=== PATIENT | female | born 1965 | race Caucasian/White ===

== ENCOUNTER 2017-01-14 17:03 | Inpatient (IN) | payer MEDICAID ==
[2017-01-14] MEDS ORDERED: Sodium Chloride 0.9% 10 ML Syringe FLUSH PRN (17:19)
--- NOTE | 2017-01-14 18:17 | PCM.HP ---
H&P History of Present Illness - General Date of Service: 01/14/17 Admit Problem/Dx: Admission Diagnosis/Problem Admission Diagnosis/Problem UTI, Urinary tract infectious disease Source of Information: Patient History Limitations: Reports: No Limitations - History of Present Illness Initial Comments - Free Text/Narative: Kimberly started to have diarrhea 10 days ago. One week ago started on Cipro 500 bid and she has had no improvement in increased urinary frequency and burning when passing urine. The urine culture was reported as no infection. She is having 12 stools daily and feels dehydrated. Stools are light brown and yellow in color. She has pain in the kidney area from the CVA areas. Onset of Symptoms: Reports: Gradual Location: Reports: Abdomen Quality: Reports: Burning Severity: Moderate Improves with: Reports: None Worsens with: Reports: None Associated Symptoms: Reports: Loss of Appetite, Weakness - Related Data Allergies/Adverse Reactions: Allergies Allergy/AdvReac Type Severity Reaction Status Date / Time Sulfa (Sulfonamide Allergy Severe Airway Verified 06/27/15 07:38 Antibiotics) Tightness ciprofloxacin [From Cipro] Allergy Hives Verified 06/27/15 07:38 ciprofloxacin HCl Allergy Hives Verified 06/27/15 07:38 [From Cipro] erythromycin base Allergy Hives Verified 06/27/15 07:38 ibuprofen Allergy Cannot Verified 06/27/15 07:38 Remember levofloxacin [From Levaquin] Allergy Hives Verified 06/27/15 07:38 Penicillins Allergy Hives Verified 06/27/15 07:38 acetaminophen [From Tylenol] AdvReac Nausea Verified 06/27/15 07:38 Home Medications: Home Meds Spironolactone [Aldactone] 25 mg PO DAILY 10/26/13 [History] rOPINIRole [Requip] 0.25 mg PO BEDTIME PRN MDD 0.75 10/26/13 [History] FLUoxetine [PROzac] 20 mg PO DAILY 04/24/14 [History] Atenolol 100 mg PO DAILY 05/22/14 [History] traZODone 100 mg PO BEDTIME 07/24/14 [History] Simethicone [Anti-Gas] 80 mg PO BID PRN 11/08/15 [History] Ondansetron [Zofran ODT] 4 mg PO Q4H PRN #30 tab.dis 11/17/15 [Rx] DULoxetine [Cymbalta] 30 mg PO DAILY 08/10/16 [History] Doxazosin Mesylate [Cardura] 2 mg PO BEDTIME 08/10/16 [History] Furosemide [Lasix] 40 mg PO DAILY 08/10/16 [History] Hydrocodone/Acetaminophen [Hydrocodon-Acetaminophn 10-325] 1 tab PO Q6H PRN [History] Omeprazole 40 mg PO DAILY 08/10/16 [History] Prochlorperazine [Compazine] 10 mg PO Q8H PRN 08/10/16 [History] Rosuvastatin Calcium 10 mg PO BEDTIME 08/10/16 [History] cycloSPORINE [Restasis] 1 drop EYEBOTH BID 08/10/16 [History] tiZANidine [Zanaflex] 4 mg PO DAILY PRN 08/10/16 [History] Losartan [Cozaar] 50 mg PO DAILY 01/14/17 [History] metFORMIN HCl [Metformin HCl] 1,000 mg PO QAM 01/14/17 [History] metFORMIN HCl [Metformin HCl] 250 mg PO ACDINNER 01/14/17 [History] Past Medical History HEENT History: Reports: Hard of Hearing Cardiovascular History: Reports: High Cholesterol, Hypertension Other Gastrointestinal History: Colon cancer [employer] History: Reports: Endometriosis, Fibroids Musculoskeletal History: Reports: Arthritis, Fibromyalgia, Neck Pain, Chronic Neurological History: Reports: Migraines Endocrine/Metabolic History: Reports: Obesity/BMI 30+ Oncologic (Cancer) History: Reports: Colon, Ovarian Other Oncologic History: Cancer of appendix; skin cancer - Infectious Disease History Infectious Disease History: Reports: Chicken Pox, Measles, Shingles - Past Surgical History HEENT Surgical History: Reports: LASIK, Oral Surgery GI Surgical History: Reports: Appendectomy, Cholecystectomy, Colonoscopy, Hernia , Abdominal Musculoskeletal Surgical History: Reports: Ganglion Cyst Social & Family History - Tobacco Use Smoking Status *Q: Light Tobacco Smoker Years of Tobacco use: 40 Packs/Tins Daily: 0.5 Used Tobacco, but Quit: No Month Tobacco Last Used: April Second Hand Smoke Exposure: Yes - Caffeine Use Caffeine Use: Reports: Coffee Caffeine Use Comment: 3 cups of coffee - Alcohol Use Days Per Week of Alcohol Use: 0 - Recreational Drug Use Recreational Drug Use: No H&P Review of Systems - Review of Systems: Review Of Systems: See Below General: Reports: Weakness Pulmonary: Reports: No Symptoms Cardiovascular: Reports: No Symptoms Gastrointestinal: Reports: Diarrhea, Decreased Appetite, Nausea Genitourinary: Reports: Dysuria, Frequency, Burning, Urgency Musculoskeletal: Reports: No Symptoms Skin: Reports: No Symptoms Psychiatric: Reports: No Symptoms Neurological: Reports: Weakness Hematologic/Lymphatic: Reports: No Symptoms Immunologic: Reports: No Symptoms Exam - Exam Exam: See Below - Vital Signs Vital Signs: Last Vital Signs Temp 98.6 F 01/14/17 17:20 Pulse 73 01/14/17 17:20 Resp 18 01/14/17 17:20 BP 125/75 01/14/17 17:20 Pulse Ox 95 01/14/17 17:20 Weight: 181 lb - Exam General: Alert, Oriented, 4 HEENT: PERRLA, Hearing Intact, Mucosa Moist & [place], Nares Patent, Normal Nasal Septum, Posterior Pharynx Clear, Conjunctiva Clear, EOMI, EACs Clear, TMs Clear Neck: Supple, Trachea Midline, 2 Lungs: Clear to Auscultation, Normal Respiratory Effort Cardiovascular: Regular Rate, Regular Rhythm Abdomen: Guarding Extremities: 3, Normal Inspection, 10 Peripheral Pulses: 1+: Radial (L), Radial (R) Skin: Warm, Dry, Intact Neurological: Cranial Nerves Intact, Reflexes Equal Bilateral Neuro Extensive - Mental Status: Alert, Oriented x3, Normal Mood/Affect, Normal Cognition Neuro Extensive - Motor, Sensory, Reflexes: CN II-XII Intact, Normal Gait, Normal Reflexes Psychiatric: Alert, Normal Affect, Normal Mood - Patient Data Lab Results last 24 hrs: Laboratory Results - last 24 hr 01/14/17 01/14/17 Range/Units 17:17 17:17 WBC 10.6 (4.5-11.0) K/uL RBC 5.03 (3.30-5.50) M/uL Hgb 15.0 (12.0-15.0) g/dL Hct 42.9 (36.0-48.0) % MCV 85 (80-98) fL MCH 30 (27-31) pg MCHC 35 (32-36) % Plt Count 301 (150-400) K/uL Neut % (Auto) 68 H (36-66) % Lymph % (Auto) 23 L (24-44) % [place] % (Auto) 8 H (2-6) % Eos % (Auto) 1 L (2-4) % Baso % (Auto) 1 (0-1) % Sodium 140 (140-148) mmol/L Potassium 3.6 (3.6-5.2) mmol/L Chloride 104 (100-108) mmol/L Carbon Dioxide 25 (21-32) mmol/L Anion Gap 10.8 (5.0-14.0) mmol/L BUN 9 (7-18) mg/dL Creatinine 0.9 (0.6-1.0) mg/dL Est Cr Clr Drug Dosing 63.74 mL/min Estimated GFR (MDRD) > 60 (>60) Glucose 128 H (74-106) mg/dL Calcium 8.7 (8.5-10.1) mg/dL Total Bilirubin 0.5 (0.2-1.0) mg/dL AST 32 (15-37) U/L ALT 44 (12-78) U/L Alkaline Phosphatase 136 H (46-116) U/L Total Protein 7.4 (6.4-8.2) g/dL Albumin 3.8 (3.4-5.0) g/dL Globulin 3.6 H (2.3-3.5) g/dL Albumin/Globulin Ratio 1.1 L (1.2-2.2) Result Diagrams: 01/14/17 17:17 01/14/17 17:17 *Q Meaningful Use (ADM) - VTE *Q VTE Criteria *Q: - Stroke *Q Stroke Criteria *Q: - AMI *Q AMI Criteria *Q: Problem List Initiated/Reviewed/Updated: Yes Orders Last 24hrs: Active Orders 24 hr Category Date Time Status Activity as Tolerated [RC] .Routine Care 01/14/17 17:12 Active Peripheral IV Care [RC] . DIRECTED Care 01/14/17 17:19 Active Vital Signs [RC] Q8H Care 01/14/17 17:12 Active Regular Diet [DIET] Diet 01/14/17 Breakfast Active CLOSTRIDIUM DIFFICILE BY PCR [RM] Routine Lab 01/14/17 17:12 Uncollected CULTURE STOOL + SHIGATOX [RM] Routine Lab 01/14/17 17:17 Uncollected CULTURE URINE [RM] Routine Lab 01/14/17 17:18 Uncollected OVA AND PARASITES [MREF] Routine Lab 01/14/17 17:16 Uncollected UA W/MICROSCOPIC [URIN] Routine Lab 01/14/17 17:18 Uncollected WBC, STOOL [OP] Routine Lab 01/14/17 17:17 Uncollected Dextrose 5%-0.9% NaCl [Dextrose 5%-Normal Saline] 1,000 Med 01/14/17 17:30 Active ml IV ASDIRECTED Sodium Chloride 0.9% [Saline Flush] Med 01/14/17 17:19 Active 10 ml FLUSH ASDIRECTED PRN Peripheral IV Insertion Adult [OM.PC] Routine Oth 01/14/17 17:19 Ordered Medication Orders Dextrose/Sodium Chloride (Dextrose 5%-Normal Saline) 1,000 mls @ 125 mls/hr IV ASDIRECTED CORY Sodium Chloride (Saline Flush) 10 ml FLUSH ASDIRECTED PRN PRN Reason: Keep Vein Open Assessment/Plan Comment:: Assessment/Plan: #1. Diarrhea. Evaluation pending. The diarrhea started before the antibiotics. #2. UTI. She has a slight reaction to cipro as before but it was the only oral med. She had nausea which was mild before. #3. DMII. Will check blood sugars. #4. 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 #6. Fibromyalgia: #7. HLD: On crestor #8. Multiple allergies to medicine.
[2017-01-14] MEDS ORDERED: Sodium Chloride 0.9% 80 ML IV SCH (18:45)
[2017-01-14] MEDS ORDERED: Iopamidol 612 MG/ML 150 ML Bottle IV SCH (18:45)
[2017-01-14] MEDS: Dextrose 5%-0.9% NaCl 1,000 ML IV SCH (19:44)
[2017-01-14] MEDS ORDERED: Ondansetron 4 MG Tab.DIS PO PRN (20:38)
[2017-01-14] MEDS ORDERED: rOPINIRole 0.5 MG Tab PO PRN (21:00)
[2017-01-14] MEDS ORDERED: traZODone 50 MG Tab PO SCH (21:00)
[2017-01-14] MEDS ORDERED: Doxazosin 4 MG Tab PO SCH (21:00)
[2017-01-14] MEDS ORDERED: Simethicone 80 MG Tab.Chew PO PRN (21:00)
[2017-01-14] MEDS ORDERED: cycloSPORINE Ophth Drops U/D Box of 30 EYEBOTH SCH (21:00)
[2017-01-14] MEDS: Acetaminophen/HYDROcodone 325-10 MG Tab PO PRN (21:15)
[2017-01-14] MEDS: Insulin Aspart 100 Units/ML 3 ML Pen SUBCUT SCH (22:08)
[2017-01-14] MEDS: Nicotine 14 MG/24 Hr Patch TRDERM SCH (22:14)
[2017-01-15] MEDS: Dextrose 5%-0.9% NaCl 1,000 ML IV SCH (03:42)
[2017-01-15] MEDS ORDERED: Iohexol 300 MG/ML 30 ML Bottle PO ONE (06:10)
[2017-01-15] MEDS ORDERED: Iohexol 647 MG/ML 10 ML SDV ONE (06:15)
[2017-01-15] MEDS: Insulin Aspart 100 Units/ML 3 ML Pen SUBCUT SCH ×3 (06:26→11:36)
[2017-01-15] MEDS ORDERED: Iohexol 647 MG/ML 10 ML SDV PO SCH (06:30)
[2017-01-15] MEDS ORDERED: Iopamidol 612 MG/ML 150 ML Bottle IV PRN (07:14)
[2017-01-15] MEDS ORDERED: Pantoprazole 40 MG Tab.CR PO SCH (07:30)
[2017-01-15] MEDS ORDERED: Losartan 50 MG Tab PO SCH (09:00)
[2017-01-15] MEDS ORDERED: cycloSPORINE Ophth Drops U/D Box of 30 EYEBOTH SCH (09:00)
[2017-01-15] MEDS ORDERED: Atenolol 50 MG Tab PO SCH (09:00)
[2017-01-15] MEDS ORDERED: FLUoxetine 20 MG Cap PO SCH (09:00)
--- NOTE | 2017-01-15 09:08 | CR ---
Chest 2V HISTORY: No Clinical Info FINDINGS: Heart size within normal limits. Pulmonary vasculature within normal limits. Faint hazines s right lower lobe. A developing infiltrate is difficult to exclude although not evident on the late ral view. Recommend radiographic follow-up.
[2017-01-15] MEDS: Acetaminophen/HYDROcodone 325-10 MG Tab PO PRN (09:22)
[2017-01-15 11:20] VITALS: BP 120/68
--- NOTE | 2017-01-15 11:20 | CT ---
CT abdomen and pelvis Total DLP 723. Comparison: 08/11/2016 Findings: Atelectasis within the lung bases. Fatty infiltration of the liver. Cysts within the liver . Prior cholecystectomy change. Adrenal glands within normal limits. Pancreas within normal limits. Prior cholecystectomy change. Granulomas within the spleen. Pancreas within normal limits. Hysterect aline change. Sigmoid diverticuli without evidence for diverticulitis. Right hemicolectomy. No small b owel wall thickening. Bladder unremarkable. Prior anterior hernia repair. Impression: 1. No acute intra-abdominal or pelvic process by CT.
[2017-01-15] MEDS: Nicotine 14 MG/24 Hr Patch TRDERM SCH (13:00)
--- NOTE | 2017-01-15 15:05 | PCM.DCSUM1 ---
Discharge Summary - Hospital Course Brief History: This patient is a 51-year-old woman who was admitted through the emergency department for further evaluation and management fatigue associated with ongoing diarrhea. - Discharge Data Discharge Date: 01/15/17 Discharge Disposition: Home, Self-Care 01 Condition: Good - Discharge Diagnosis/Problem(s) (1) Type 2 diabetes mellitus SNOMED Code(s): 62158191 ICD Code: E11.9 - TYPE 2 DIABETES MELLITUS WITHOUT COMPLICATIONS Status: Acute Current Visit: Yes (2) Chronic diarrhea SNOMED Code(s): 736249593 ICD Code: K52.9 - NONINFECTIVE GASTROENTERITIS AND COLITIS, UNSPECIFIED Status: Acute Current Visit: Yes - Patient Summary/Data Hospital Course: This patient is a 51-year-old woman who has had ongoing difficulty with intermittent diarrhea over the past years. Recently she was treated for urinary tract infection with ciprofloxacin, actually prior to onset of antibiotic therapy she began having more difficulty with diarrhea up to 12 stools per day. During this period of time she became progressively more weak and fatigued. She was admitted yesterday by Dr. Gan for further evaluation and management. After admission she had only one semi-formed stool, studies were negative for C. difficile and white blood cells. CT scan of the abdomen was obtained and showed no significant abnormalities to explain her current symptoms. White blood cell count was normal and urine showed no evidence of active urinary tract infection urine. Blood glucose levels were monitored throughout hospital stay for ongoing management of her diabetes. She was tolerating a diet on the day of discharge and no specific etiology for her underlying symptoms, at the time of discharge it appeared that her diarrhea had resolved. She will resume her usual diabetic diet and activity will be as tolerated. Followup appointment will be scheduled with Dr. Gan within one week. Consider referral to gastroenterology for further evaluation of her intermittent chronic diarrhea and possible colonoscopy for further evaluation. - Patient Instructions Diet: Diabetic Diet Activity: As Tolerated Other/Special Instructions: Schedule followup appointment with Dr. Gan within one week. - Discharge Plan Home Medications: Home Meds Spironolactone [Aldactone] 25 mg PO DAILY 10/26/13 [History] rOPINIRole [Requip] 0.25 mg PO BEDTIME PRN MDD 0.75 10/26/13 [History] FLUoxetine [PROzac] 20 mg PO DAILY 09/02/14 [History] Atenolol 100 mg PO DAILY 05/22/14 [History] traZODone 100 mg PO BEDTIME 07/24/14 [History] Simethicone [Anti-Gas] 80 mg PO BID PRN 11/08/15 [History] Ondansetron [Zofran ODT] 4 mg PO Q4H PRN #30 tab.dis 11/17/15 [Rx] DULoxetine [Cymbalta] 30 mg PO DAILY 08/10/16 [History] Doxazosin Mesylate [Cardura] 2 mg PO BEDTIME 08/10/16 [History] Furosemide [Lasix] 40 mg PO DAILY 08/10/16 [History] Hydrocodone/Acetaminophen [Hydrocodon-Acetaminophn 10-325] 1 tab PO Q6H PRN [History] Omeprazole 40 mg PO DAILY 08/10/16 [History] Prochlorperazine [Compazine] 10 mg PO Q8H PRN 08/10/16 [History] Rosuvastatin Calcium 10 mg PO BEDTIME 08/10/16 [History] cycloSPORINE [Restasis] 1 drop EYEBOTH BID 08/10/16 [History] tiZANidine [Zanaflex] 4 mg PO DAILY PRN 08/10/16 [History] Diphenoxylate HCl/Atropine [Diphenoxylate-Atrop 2.5-0.025] 1 tab PO 6XDAY PRN [History] Losartan [Cozaar] 50 mg PO DAILY 01/14/17 [History] metFORMIN HCl [Metformin HCl] 1,000 mg PO QAM 01/14/17 [History] metFORMIN HCl [Metformin HCl] 250 mg PO ACDINNER 01/14/17 [History] - Patient Data Vitals - Most Recent: Last Vital Signs Temp 97 F 01/15/17 11:19 Pulse 69 01/15/17 11:19 Resp 16 01/15/17 11:19 BP 120/68 01/15/17 11:19 Pulse Ox 96 01/15/17 11:19 Weight - Most Recent: 180 lb 15.992 oz I&O - Last 24 hours: Intake & Output 01/15/17 01/15/17 01/15/17 06:59 14:59 22:59 Intake Total 1220 1520 Balance 1220 1520 Lab Results - Last 24 hrs: Laboratory Results - last 24 hr 01/14/17 01/14/17 01/14/17 Range/Units 17:17 17:17 18:28 WBC 10.6 (4.5-11.0) K/uL RBC 5.03 (3.30-5.50) M/uL Hgb 15.0 (12.0-15.0) g/dL Hct 42.9 (36.0-48.0) % MCV 85 (80-98) fL MCH 30 (27-31) pg MCHC 35 (32-36) % Plt Count 301 (150-400) K/uL Neut % (Auto) 68 H (36-66) % Lymph % (Auto) 23 L (24-44) % [place] % (Auto) 8 H (2-6) % Eos % (Auto) 1 L (2-4) % Baso % (Auto) 1 (0-1) % Sodium 140 (140-148) mmol/L Potassium 3.6 (3.6-5.2) mmol/L Chloride 104 (100-108) mmol/L Carbon Dioxide 25 (21-32) mmol/L Anion Gap 10.8 (5.0-14.0) mmol/L BUN 9 (7-18) mg/dL Creatinine 0.9 (0.6-1.0) mg/dL Est Cr Clr Drug Dosing 63.74 mL/min Estimated GFR (MDRD) > 60 (>60) Glucose 128 H (74-106) mg/dL Hemoglobin A1c 6.3 H (4.5-6.2) % Calcium 8.7 (8.5-10.1) mg/dL Total Bilirubin 0.5 (0.2-1.0) mg/dL AST 32 (15-37) U/L ALT 44 (12-78) U/L Alkaline Phosphatase 136 H (46-116) U/L Total Protein 7.4 (6.4-8.2) g/dL Albumin 3.8 (3.4-5.0) g/dL Globulin 3.6 H (2.3-3.5) g/dL Albumin/Globulin Ratio 1.1 L (1.2-2.2) Urine Color Urine Appearance Urine pH (4.5-8.0) Ur Specific [place] (1.008-1.030) Urine Protein (NEGATIVE) mg/dL Urine Glucose (UA) (NEGATIVE) mg/dL Urine Ketones (NEGATIVE) mg/dL Urine Occult Blood (NEGATIVE) Urine Nitrite (NEGATIVE) Urine Bilirubin (NEGATIVE) Urine Urobilinogen (NORMAL) mg/dL Ur Leukocyte Esterase (NEGATIVE) Urine RBC (0-5) Urine WBC (0-5) Ur Epithelial Cells Amorphous Sediment Urine Bacteria Urine Mucus 01/14/17 Range/Units 19:52 WBC (4.5-11.0) K/uL RBC (3.30-5.50) M/uL Hgb (12.0-15.0) g/dL Hct (36.0-48.0) % MCV (80-98) fL MCH (27-31) pg MCHC (32-36) % Plt Count (150-400) K/uL Neut % (Auto) (36-66) % Lymph % (Auto) (24-44) % [place] % (Auto) (2-6) % Eos % (Auto) (2-4) % Baso % (Auto) (0-1) % Sodium (140-148) mmol/L Potassium (3.6-5.2) mmol/L Chloride (100-108) mmol/L Carbon Dioxide (21-32) mmol/L Anion Gap (5.0-14.0) mmol/L BUN (7-18) mg/dL Creatinine (0.6-1.0) mg/dL Est Cr Clr Drug Dosing mL/min Estimated GFR (MDRD) (>60) Glucose (74-106) mg/dL Hemoglobin A1c (4.5-6.2) % Calcium (8.5-10.1) mg/dL Total Bilirubin (0.2-1.0) mg/dL AST (15-37) U/L ALT (12-78) U/L Alkaline Phosphatase (46-116) U/L Total Protein (6.4-8.2) g/dL Albumin (3.4-5.0) g/dL Globulin (2.3-3.5) g/dL Albumin/Globulin Ratio (1.2-2.2) Urine Color Yellow Urine Appearance Clear Urine pH 7.0 (4.5-8.0) Ur Specific [place] 1.010 (1.008-1.030) Urine Protein Negative (NEGATIVE) mg/dL Urine Glucose (UA) Normal (NEGATIVE) mg/dL Urine Ketones Negative (NEGATIVE) mg/dL Urine Occult Blood Negative (NEGATIVE) Urine Nitrite Negative (NEGATIVE) Urine Bilirubin Negative (NEGATIVE) Urine Urobilinogen Normal (NORMAL) mg/dL Ur Leukocyte Esterase Negative (NEGATIVE) Urine RBC 0-5 (0-5) Urine WBC Not seen (0-5) Ur Epithelial Cells Rare Amorphous Sediment Not seen Urine Bacteria Few Urine Mucus Not seen COLIN Results - Last 24 hrs: Microbiology 01/14/17 08:46 Clostridium difficile (PCR) - Final Stool / Feces NEGATIVE CDIFF TOXIN 01/14/17 08:46 Stool for WBCs - Final Stool / Feces NO WBC SEEN Med Orders - Current: Current Medications Hydrocodone Bitart/Acetaminophen ([place] 325-10 Mg) 1 tab PO Q6H PRN PRN Reason: Pain Last Admin: 01/15/17 09:22 Dose: 1 tab Atenolol (Tenormin) 100 mg PO DAILY [facility] Last Admin: 01/15/17 08:21 Dose: 100 mg Cyclosporine (Restasis) 0 each EYEBOTH BID [facility] Last Admin: 01/15/17 08:20 Dose: 1 dose Doxazosin Mesylate (Cardura) 2 mg PO BEDTIME [facility] Last Admin: 01/14/17 22:16 Dose: 2 mg Fluoxetine HCl (Prozac) 20 mg PO DAILY [facility] Last Admin: 01/15/17 08:20 Dose: 20 mg Dextrose/Sodium Chloride (Dextrose 5%-Normal Saline) 1,000 mls @ 125 mls/hr IV ASDIRECTED [facility] Last Admin: 01/15/17 03:42 Dose: 125 mls/hr Insulin Aspart (Novolog) 0 unit SUBCUT QIDACANDBED [facility] PRN Reason: Protocol Last Admin: 01/15/17 11:36 Dose: Not Given Losartan Potassium (Cozaar) 50 mg PO DAILY [facility] Last Admin: 01/15/17 08:19 Dose: 50 mg Nicotine (Habitrol) 14 mg TRDERM DAILY [facility] Last Admin: 01/15/17 13:00 Dose: Not Given Ondansetron HCl (Zofran Odt) 4 mg PO Q4H PRN PRN Reason: Nausea Pantoprazole Sodium (Protonix) 40 mg PO ACBREAKFAST [facility] Last Admin: 01/15/17 08:06 Dose: 40 mg Ropinirole HCl (Requip) 0.25 mg PO BEDTIME PRN PRN Reason: RESTLESS LEGS Simethicone (Simethicone) 80 mg PO BID PRN PRN Reason: INDIGESTION Sodium Chloride (Saline Flush) 10 ml FLUSH ASDIRECTED PRN PRN Reason: Keep Vein Open Trazodone HCl (Trazodone) 100 mg PO BEDTIME [facility] Last Admin: 01/14/17 22:15 Dose: 100 mg Discontinued Medications Cyclosporine (Restasis) 0 each EYEBOTH BID [facility] Last Admin: 01/14/17 21:16 Dose: Not Given Sodium Chloride (Normal Saline) 77 mls @ 3.7 mls/min IV ASDIRECTED [facility] Stop: 01/15/17 09:00 Last Admin: 01/15/17 07:28 Dose: 3.7 mls/min Insulin Aspart (Novolog) 0 unit SUBCUT QID [facility] PRN Reason: Protocol Last Admin: 01/15/17 06:26 Dose: Not Given Iohexol (Omnipaque-300) Confirm Administered Dose 10 ml .ROUTE .STK-MED ONE Stop: 01/15/17 06:16 Last Admin: 01/15/17 06:21 Dose: 10 ml Iohexol (Omnipaque-300) 10 ml PO . DIRECTED [facility] Stop: 01/15/17 09:00 Iopamidol (Isovue-300 (61%)) 123 ml IV . DIRECTED PRN PRN Reason: RADIOLOGY EXAM Stop: 01/15/17 09:00 Last Admin: 01/15/17 07:27 Dose: 123 ml *Q Meaningful Use (DIS) - VTE *Q VTE Criteria *Q: - Stroke *Q Stroke Criteria *Q: - AMI *Q AMI Criteria *Q:
== END 2017-01-15 15:17 | disposition home or self-care (01) | DRG 392 ==
LOC: JP.MS 17:03 → OBSVTOIN 17:03
PROVIDERS: ADMIT Internal Medicine; ATTEND Internal Medicine
DX: K52.9 Noninfective gastroenteritis and colitis, unspecified (principal); E11.9 Type 2 diabetes mellitus without complications; Z79.84 Long term (current) use of oral hypoglycemic drugs; R53.83 Other fatigue; I10 Essential (primary) hypertension; F17.210 Nicotine dependence, cigarettes, uncomplicated; M79.7 Fibromyalgia; E78.5 Hyperlipidemia, unspecified; H91.90 Unspecified hearing loss, unspecified ear; Z85.038 Personal history of other malignant neoplasm of large intestine; Z85.43 Personal history of malignant neoplasm of ovary; Z85.828 Personal history of other malignant neoplasm of skin; Z85.89 Personal history of malignant neoplasm of other organs and systems; Z88.6 Allergy status to analgesic agent; Z88.1 Allergy status to other antibiotic agents; Z88.0 Allergy status to penicillin; Z88.2 Allergy status to sulfonamides
CPT/HCPCS: 36415; 71020; 71020-26; 74177; 74177-26; 80053; 81001; 82962; 83036; 85025; 87046; 87086; 87177; 87209; 87493; 87899; 89055; A9270-GY; J7030